=== PATIENT | female | born 2000 | race Two or more races ===

== ENCOUNTER 2021-05-01 17:38 | Emergency (ER) | payer SELFPAY ==
[~2021-05-01] VITALS: Ht 160 cm; Wt 54.5 kg
--- NOTE | 2021-05-01 19:06 | PHYS DOC ---
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 Patient is a 21-year-old female presents to the emergency department complaining of vaginal bleeding that started last night, patient reports she has soaked 1 feminine pad overnight, reports experiencing right lower pelvic pain at approximately 5:00 this evening in which she became concerned and came to the emergency department for evaluation. Patient rates her pain a 5 out of 10 pain. Patient reports her last menstrual cycle was on February 25 with normal duration of flow, states she had a positive test in March, has not followed up with an OB physician. Patient reports 3 para 2, no problems with her previous pregnancies, full-term vaginal births. Patient denies nausea, vomiting, diarrhea, denies seeing blood in her stool or in her urine. Denies burning with urination, increased urinary frequency, urinary pressure, hematuria or other dysuria. Patient denies rashes or lesions to her vagina, denies vaginal discharge or STI concerns. Patient denies dizziness, headaches, syncopal or near syncopal episodes. Patient denies other physical complaints or physical concerns. (MALINDA JOY APRN) Review of Systems: Review of Systems: 14 body systems of review of systems have been reviewed. See HPI for pertinent positives and negative responses, otherwise all other systems are negative, nonpertinent or noncontributory. Constitutional: Negative except as outlined in HPI above. Skin: Negative except as outlined in HPI above. Eyes: Negative except as outlined in HPI above. HENT: Negative except as outlined in HPI above. Respiratory: Negative except as outlined in HPI above. Cardiovascular: Negative except as outlined in HPI above. GI: Negative except as outlined in HPI above. : Negative except as outlined in HPI above. Musculoskeletal: Negative except as outlined in HPI above. Integument: Negative except as outlined in HPI above. Neurologic: Negative except as outlined in HPI above. Endocrine: Negative except as outlined in HPI above. Lymphatic: Negative except as outlined in HPI above. Psychiatric: Negative except as outlined in HPI above. (MALINDA JOY APRN) Heart Score: C/O Chest Pain: No Risk Factors: Risk Factors: DM, Current or recent (<one month) smoker, HTN, HLP, family history of CAD, obesity. Risk Scores: Score 0 - 3: 2.5% MACE over next 6 weeks - Discharge Home Score 4 - 6: 20.3% MACE over next 6 weeks - Admit for Clinical Observation Score 7 - 10: 72.7% MACE over next 6 weeks - Early Invasive Strategies (MALINDA JOY APRN) Allergies: Allergies: Allergies Coded Allergies Type Severity Reaction Last Updated Verified No Known Drug Allergies 05/01/21 No (MALINDA JOY APRN) Physical Exam: PE: Constitutional: Well developed, well nourished, no acute distress, non-toxic appearance. 21-year-old female in no apparent distress. HENT: Normocephalic, atraumatic. Eyes: Conjunctiva normal, no discharge. Neck: Normal range of motion. Cardiovascular: Distal cap refill less than 2 seconds, no cyanosis appreciated. Heart sounds S1-S2 auscultation, regular rate and rhythm. Lungs & Thorax: Patient is in no respiratory distress, no adventitious lung sounds appreciated. Lung sounds clear to auscultation all lung gaytan. Abdomen: Bowel sounds normal, soft, flat, lower right sided pelvic pain to palpation, no masses, no pulsatile masses. No bruising or skin discoloration of the abdomen. Skin: Warm, dry, no erythema, no rash. Back: No tenderness, no CVA tenderness. Extremities: No tenderness, no cyanosis, no clubbing, ROM intact, no edema. Neurologic: Alert and oriented X 3, normal motor function, normal sensory function, no focal deficits noted. Psychologic: Affect normal, judgement normal, mood normal. : Pelvic exam performed with female ED nurse at bedside, no rashes or lesions of the external vagina or adjacent structures, speculum exam reveals pink vaginal wall tissues, the cervical os is nonerythematous, is closed, there is blood oozing from cervical os. (MALINDA JOY APRN) Current Patient Data: Labs: Laboratory Tests Test 05/01/21 18:29 POC Urine HCG, Qualitative Hcg positive (Negative) Vital Signs: Vital Signs Date Time Temp Pulse Resp B/P (MAP) Pulse Ox O2 Delivery O2 Flow Rate FiO2 05/01/21 18:15 98.3 98 14 111/54 (73) 96 98.3 (ADAMOVICH,PARK PEDIATRIC GENETICIST) Labs: Laboratory Tests Test 05/01/21 18:21 05/01/21 18:29 05/01/21 20:15 Urine Collection Type Unknown Urine Color Yellow Urine Clarity Clear Urine pH 7.0 Urine Specific Crozier <=1.005 Urine Protein Negative mg/dL Urine Glucose (UA) Negative mg/dL Urine Ketones (Stick) Negative mg/dL Urine Blood Large Urine Nitrite Negative Urine Bilirubin Negative Urine Urobilinogen Dipstick 0.2 mg/dL Urine Leukocyte Esterase Trace Urine RBC 1-2 /HPF Urine WBC 11-20 /HPF Urine Squamous Epithelial Cells Many /LPF Urine Bacteria 0 /HPF Bedside Urine HCG, Qualitative Hcg positive White Blood Count 11.0 x10^3/uL Red Blood Count 3.81 x10^6/uL Hemoglobin 12.8 g/dL Hematocrit 37.3 % Mean Corpuscular Volume 98 fL Mean Corpuscular Hemoglobin 33 pg Mean Corpuscular Hemoglobin Concent 34 g/dL Red Cell Distribution Width 11.2 % Platelet Count 301 x10^3/uL Neutrophils (%) (Auto) 51 % Lymphocytes (%) (Auto) 29 % Monocytes (%) (Auto) 7 % Eosinophils (%) (Auto) 13 % Basophils (%) (Auto) 1 % Neutrophils # (Auto) 5.6 x10^3/uL Lymphocytes # (Auto) 3.2 x10^3/uL Monocytes # (Auto) 0.7 x10^3/uL Eosinophils # (Auto) 1.5 x10^3/uL Basophils # (Auto) 0.1 x10^3/uL Segmented Neutrophils % 45 % Band Neutrophils % 1 % Lymphocytes % 37 % Atypical Lymphocytes % (Manual) 1 % Monocytes % 2 % Eosinophils % 14 % Platelet Estimate Adequate Maternal Serum HCG Beta Subunit 6034 mIU/mL Sodium Level 141 mmol/L Potassium Level 4.1 mmol/L Chloride Level 103 mmol/L Carbon Dioxide Level 27 mmol/L Anion Gap 11 Blood Urea Nitrogen 11 mg/dL Creatinine 0.6 mg/dL Estimated GFR (Cockcroft-Gault) 125.0 Glucose Level 78 mg/dL Calcium Level 9.1 mg/dL Current Medications Medications (Trade) Dose Ordered Sig/Lynn Route PRN Reason Start Time Stop Time Status Last Admin Dose Admin Acetaminophen/ Hydrocodone Bitart (Lortab 5/325) 1 tab 1X ONCE PO 2/16/22 20:30 05/01/21 20:31 DC 05/01/21 20:37 (CLINTON LARSON MD) EKG: EKG: [] (MALINDA JOY APRN) Radiology/Procedures: Radiology/Procedures: REASON: Vaginal bleeding, PROCEDURE: OB <14 WKS W/TV INDICATION: Reason: Vaginal bleeding, / Spl. Instructions: / History: COMPARISON: None. TECHNIQUE: Grayscale and color ultrasound images of the pelvis. Transvaginal images were obtained. FINDINGS: Uterus: 81 x 55 x 44 mm. Intrauterine gestational sac is seen and unremarkable. Too early in gestation to adequately assess placenta. pole seen. CRL: 7 mm. Estimated Gestational Age: 6 weeks and 4 days Heart Beat: Not visualized Right Ovary: 37 x 28 x 18 mm. Left Ovary: 26 x 25 x 15 mm. Vascular flow identified to bilateral ovaries. IMPRESSION: * Intrauterine is seen without a heartbeat at this time. This could be secondary to early gestational age but follow-up could be obtained to ensure appropriate development of a heartbeat to exclude early failure. * Recommend routine anomaly screening at 18-22 weeks. Electronically signed by: Terry Bell MD (05/01/2021 8:01 PM) [id number] (MALINDA JOY APRN) Course & Med Decision Making: Course & Med Decision Making Pertinent Labs and Imaging studies reviewed. (See chart for details) 21-year-old female, vital signs reviewed, resents emergency department concerning vaginal bleeding during . Will order urinalysis assay, uri ne test, hCG quant, ABO and Rh, CBC, BMP, OB less than 14 weeks transvaginal ultrasound to evaluate . Patient is G3, P2, LMP of , per will places patient at 9 weeks 3 days . The patient's blood type is be positive, no indication for RhoGam, beta hCG quant 6034, OB ultrasound reveals a single intrauterine gestational sac at 6 weeks 4 days per radiologist interpretation. There was no heart rate appreciated, suspect demise versus early , this is likely a demise as gestational measurement per OB ultrasound and beta hCG quant level does not match patient's reported LMP. Discussed findings with patient, recommended strict follow-up in 3 days for repeat examination and evaluation of hCG quantitative levels. Strict follow-up with RN ENDOCRINOLOGY, patient states she does not have an RN ENDOCRINOLOGY to follow-up with, will give RN ENDOCRINOLOGY specialist Dr. Morales information to patient, reviewed strict return to ER precautions and concerns, ongoing OB care and follow-up soon, patient gave verbal understanding of and is amenable to ED discharge planning. Discussed with the patient all findings and diagnostic testing as well as the need to follow-up with their primary care provider for further evaluation and treatment or return to the ED if any new or worsening symptoms. Strict return precautions were also discussed at length, the patient voiced understanding and agreement with the discharge planning. The patient was nontoxic in appearance, in no apparent distress, and hemodynamically stable at the time of disposition. (MALINDA JOY APRN) Course & Med Decision Making I have reviewed the PA/ROASTER HELPER's note and plan of care. I was available for consultation as needed during the patient's visit in the emergency department. I agree with the clinical impression, plan, and disposition with the following addition: Patient is blood type B+. RhoGam not indicated. (CLINTON LARSON MD) Dragon Disclaimer: Dragon Disclaimer: This electronic medical record was generated, in whole or in part, using a voice recognition dictation system. (MALINDA JOY APRN) Departure Departure Impression: Primary Impression: Threatened miscarriage in early Disposition: 01 HOME / SELF CARE / HOMELESS Condition: GOOD Referrals: MALINDA MORALES MD Patient Instructions: Threatened Miscarriage Additional Instructions: Usted fue vista hoy en el departamento de emergencias por sangrado vaginal chyna el embarazo. La ecografa mostr un embarazo intrauterino sin latidos cardacos de aproximadamente 6 semanas y 4 paredes de edad gestacional. Mohsen comentamos, no se apreciaban latidos en el sonograma. Lo ms probable es que esto se deba a janet muerte en la que abortars el embarazo. Lo ms probable es que experimente ms peso de lo normal. Sangrado con calambres hasta que el embarazo caldwell pasado. Si experimenta molestias abdominales severas o sangrado vag inal tere, regrese al departamento de emergencias para janet reevaluacin. Sin embargo, existe janet posibilidad muy pequea de que las estimaciones estn equivocadas y de que ashley embarazo an pueda ser viable. Es muy importante que vuelva a calcular pineda nivel de beta hCG en 3 paredes. Dighton determinar si el embarazo es viable. Pineda nivel de beta hCG hoy es 6034. Infrmele al especialista en obstetricia que chito en 3 paredes que pineda tipo de yajaira es B+. Adjunt janet copia de pineda informe de ecografa a manohar instrucciones de ruiz, trigalo con usted a pineda manuel con el obstetra en 3 paredes. Mehdi por visitar nuestro Departamento de Emergencias. Fue un placer atenderlo hoy en el departamento de emergencias y le agradecemos que nos haya confiado pineda atencin. Si surge algn problema adicional, no dude en volver a visitarnos. Twin un seguimiento con pineda proveedor de atencin primaria para que puedan planificar atencin adicional si es necesario y conocer el problema que tuvo. Si los sntomas empeoran, regrese al Departamento de Emergencias. Cualquier sntoma preocupante que comience, mohsen dolor en el pecho, falta de aire, debilidad o entumecimiento en un lado del cuerpo, fiebre ruiz o cualquier otro sntoma preocupante, regresa a la moises de emergencias. You were seen today in the emergency department for vaginal bleeding during . The sonogram showed an intrauterine without a heartbeat m easuring approximately 6 weeks and 4 days of gestational age. As we discussed there was no heartbeat appreciated on the sonogram. This is most likely due to a demise in which you will miscarry the . You will most likely experience heavier than normal. Bleeding with cramping until the has passed. If you experience severe increased abdominal discomfort or severe vaginal bleeding, please return to the emergency department for reevaluation. However, there is a very small chance that the estimations are off and that this could still be viable. It is very important that you have your beta hCG level redrawn in 3 days. This will determine whether the is viable. Your beta hCG level today is 6034. Please let the OB specialist you see in 3 days know your blood type is B+. I have attached a copy of your sonogram report to your discharge instructions, please bring this with you to your OB appointment in 3 days. Thank you for visiting our Emergency Department. It was a pleasure taking care of you today in the emergency department and we appreciate you trusting us with your care. If any additional problems come up don't hesitate to return to visit us. Please follow up with your primary care provider so they can plan additional care if needed and know about the problem that you had. If symptoms worsen come back to the Emergency Department. Any concerning symptoms that start such as chest pain, shortness of air, weakness or numbness on one side of the body, running high fevers or any other concerning symptoms return to the ER. MALINDA JOY APRN May 01, 2021 19:06 CLINTON LARSON MD May 02, 2021 02:29
[2021-05-01 19:14] LABS: BILIRUBIN,URINE NEGATIVE (NEG); CLARITY,URINE CLEAR; COLOR,URINE YELLOW; NITRITE,URINE NEGATIVE (NEG); PROTEIN,URINE NEGATIVE (NEG-TRACE); UROBILINOGEN,URINE 0.2 mg/dL (0.2 mg/dL)
[2021-05-01 19:33] LABS: BACTERIA,URINE 0 /HPF (0-FEW)
--- NOTE | 2021-05-01 20:03 | RAD ---
INDICATION: Reason: Vaginal bleeding, / Spl. Instructions: / History: COMPARISON: None. TECHNIQUE: Grayscale and color ultrasound images of the pelvis. Transvaginal images were obtained. FINDINGS: Uterus: 81 x 55 x 44 mm. Intrauterine gestational sac is seen and unremarkable. Too early in gestation to adequately assess p lacenta. pole seen. CRL: 7 mm. Estimated Gestational Age: 6 weeks and 4 days Heart Beat: Not visualized Right Ovary: 37 x 28 x 18 mm. Left Ovary: 26 x 25 x 15 mm. Vascular flow identified to bilateral ovaries. IMPRESSION: * Intrauterine is seen without a heartbeat at this time. This could be secondary to early gestational age but follow-up could be obtained to ensure appropriate development of a heartbeat to exclude early failure. * Recommend routine anomaly screening at 18-22 weeks. Electronically signed by: Terry Bell MD (05/01/2021 8:01 PM) [id number]
[2021-05-01 20:30] LABS: BASO # 0.1 x10^3/uL (0.0-0.2); BASO % 1 % (0-3); EOS # 1.5 x10^3/uL (0.0-0.7); EOS % 13 % (0-3); HEMATOCRIT 37.3 % (36.0-47.0); HEMOGLOBIN 12.8 g/dL (12.0-15.5); LYMPH # 3.2 x10^3/uL (1.0-4.8); LYMPH % 29 % (24-48); MEAN CORPUSCULAR HEMOGLOBIN 33 pg (25-35); MEAN CORPUSCULAR HGB CONC 34 g/dL (31-37); MEAN CORPUSCULAR VOLUME 98 fL (79-100); MONO # 0.7 x10^3/uL (0.0-1.1); MONO % 7 % (0-9); NEUT # 5.6 x10^3/uL (1.8-7.7); NEUT % 51 % (31-73); PLATELET COUNT 301 x10^3/uL (140-400); RED BLOOD COUNT 3.81 x10^6/uL (3.50-5.40); RED CELL DISTRIBUTION WIDTH 11.2 % (11.5-14.5)
[2021-05-01] MEDS ORDERED: HYDROcodone/APAP 5/325MG 1 TAB TABLET PO ONE (20:30)
[2021-05-01 20:43] LABS: CALCIUM 9.1 mg/dL (8.5-10.1); CREATININE 0.6 mg/dL (0.6-1.0); POTASSIUM 4.1 mmol/L (3.5-5.1)
[2021-05-01 21:12] LABS: % ATYL 1 % (0-0); % BANDS 1 % (0-9); % EOS 14 % (0-5); % LYMPHS 37 % (24-48); % MONOS 2 % (0-10); % SEGS 45 % (35-66); PLT ESTIMATE ADEQUATE (ADEQUATE)
[2021-05-01 21:26] VITALS: BP 110/64
== END 2021-05-01 22:10 | disposition home or self-care (01) ==
LOC: ER 17:38
DX: O20.0 Threatened abortion (principal); Z3A.01 Less than 8 weeks gestation of pregnancy
CPT/HCPCS: 36415; 76801; 76817; 80048; 81001; 81025; 84702; 85007; 85025; 86900; 86901; 87086; 99285-25

== ENCOUNTER 2021-05-04 20:07 | Emergency (ER) | payer SELFPAY ==
[~2021-05-04] VITALS: Ht 157.5 cm; Wt 54.6 kg
[2021-05-04 20:45] LABS: BILIRUBIN,URINE NEGATIVE (NEG); CLARITY,URINE CLOUDY; COLOR,URINE YELLOW; NITRITE,URINE NEGATIVE (NEG); PROTEIN,URINE NEGATIVE (NEG-TRACE); UROBILINOGEN,URINE 0.2 mg/dL (0.2 mg/dL)
[2021-05-04 20:51] LABS: BACTERIA,URINE FEW /HPF (0-FEW)
[2021-05-04 20:52] LABS: RBC,URINE OCC /HPF (0-2); WBC,URINE OCC /HPF (0-4)
[2021-05-04 20:52] LABS: BASO # 0.1 x10^3/uL (0.0-0.2); BASO % 1 % (0-3); EOS # 1.5 x10^3/uL (0.0-0.7); EOS % 17 % (0-3); HEMATOCRIT 37.6 % (36.0-47.0); HEMOGLOBIN 12.7 g/dL (12.0-15.5); LYMPH # 2.9 x10^3/uL (1.0-4.8); LYMPH % 32 % (24-48); MEAN CORPUSCULAR HEMOGLOBIN 33 pg (25-35); MEAN CORPUSCULAR HGB CONC 34 g/dL (31-37); MEAN CORPUSCULAR VOLUME 97 fL (79-100); MONO # 0.8 x10^3/uL (0.0-1.1); MONO % 9 % (0-9); NEUT # 3.7 x10^3/uL (1.8-7.7); NEUT % 41 % (31-73); PLATELET COUNT 301 x10^3/uL (140-400); RED BLOOD COUNT 3.87 x10^6/uL (3.50-5.40); RED CELL DISTRIBUTION WIDTH 11.2 % (11.5-14.5); WHITE BLOOD COUNT 8.9 x10^3/uL (4.0-11.0)
[2021-05-04 21:04] LABS: CALCIUM 9.1 mg/dL (8.5-10.1); CREATININE 0.6 mg/dL (0.6-1.0); POTASSIUM 4.7 mmol/L (3.5-5.1)
[2021-05-04 21:14] LABS: % BANDS 2 % (0-9); % EOS 12 % (0-5); % MONOS 5 % (0-10)
[2021-05-04 21:15] LABS: % LYMPHS 39 % (24-48); % SEGS 42 % (35-66); PLT ESTIMATE ADEQUATE (ADEQUATE)
--- NOTE | 2021-05-04 21:16 | PHYS DOC ---
Past Medical History Past Surgical History: No Surgical History Smoking Status: Never Smoker Alcohol Use: None General Adult EDM: Chief Complaint: VAGINAL BLEEDING HPI: HPI: 21 yo F with no significant past medical history, presents to the ED with her friend, (patient consents to his/her/their knowledge and involvement in pts' medical care), complaints of vaginal bleeding since Thursday (x4days) with associated abdominal cramps and low back pain. LMP 02/25/21. Was seen in ed 05/01, ultrasound showed intrauterine with no heart rate, beta hcg was 6034, 6wk4d. Was recommended follow-up with MASTER CONTROL SUPERVISOR in 3 days, has not established MASTER CONTROL SUPERVISOR care. No history of excessive bleeding or blood transfusions. Patient is Georgian-speaking and mechanotherapist services were used, code 11968. Review of Systems: Review of Systems: Constitutional: Denies fever or chills. [] Eyes: Denies change in visual acuity. [] HENT: Denies nasal congestion or sore throat. [] Respiratory: Denies cough or shortness of breath. [] Cardiovascular: Denies chest pain or edema. [] GI: Denies nausea, vomiting, bloody stools or diarrhea. [] : Denies dysuria or hematuria Musculoskeletal: Denies saddle anesthesia or joint pain. [] Integument: Denies rash or diaphoresis Neurologic: Denies headache, focal weakness or sensory changes. [] Endocrine: Denies polyuria or polydipsia. [] Lymphatic: Denies swollen glands. [] Psychiatric: Denies depression or anxiety. [] Heart Score: C/O Chest Pain: No Risk Factors: Risk Factors: DM, Current or recent (<one month) smoker, HTN, HLP, family history of CAD, obesity. Risk Scores: Score 0 - 3: 2.5% MACE over next 6 weeks - Discharge Home Score 4 - 6: 20.3% MACE over next 6 weeks - Admit for Clinical Observation Score 7 - 10: 72.7% MACE over next 6 weeks - Early Invasive Strategies Allergies: Allergies: Allergies Coded Allergies Type Severity Reaction Last Updated Verified No Known Drug Allergies 05/01/21 No Physical Exam: PE: Constitutional: Well developed, well nourished, no acute distress, non-toxic appearance. HENT: Normocephalic, atraumatic, Eyes: EOMI, conjunctiva normal, no discharge. Neck: Normal range of motion, supple, Cardiovascular: S1/2 present, regular rhythm Lungs & Thorax: Speaking in full sentences, bilateral equal chest rise, no tachypnea or increased work of breathing Abdomen: soft, no tenderness, Skin: Warm, dry, no erythema, no rash. [] Extremities: No tenderness, no cyanosis, no lower extremity edema Neurologic: Alert and oriented X 3, normal motor function, normal sensory function, no focal deficits noted. [] Psychologic: Affect normal, judgement normal, mood -appears anxious Pelvic: Chaperoned by RN, external genitalia normal, vaginal bleeding present, large blood clot (quarter size) brought in a kaylynn jar from home, cervical os open with no brisk vaginal bleeding-blood is present in cervical os, no cervical erythema, no CMT or adnexal tenderness, tolerated exam well Current Patient Data: Labs: Laboratory Tests Test 05/04/21 20:30 05/04/21 20:37 05/04/21 20:45 Urine Collection Type Unknown Urine Color Yellow Urine Clarity Cloudy Urine pH 7.0 (<5.0-8.0) Urine Specific [place] 1.015 (1.000-1.030) Urine Protein Negative mg/dL (NEG-TRACE) Urine Glucose (UA) Negative mg/dL (NEG) Urine Ketones (Stick) Negative mg/dL (NEG) Urine Blood Large (NEG) Urine Nitrite Negative (NEG) Urine Bilirubin Negative (NEG) Urine Urobilinogen Dipstick 0.2 mg/dL (0.2 mg/dL) Urine Leukocyte Esterase Negative (NEG) Urine RBC Occ /HPF (0-2) Urine WBC Occ /HPF (0-4) Urine Squamous Epithelial Cells Mod /LPF Urine Bacteria Few /HPF (0-FEW) Urine Mucus Mod /LPF POC Urine HCG, Qualitative Hcg positive (Negative) White Blood Count 8.9 x10^3/uL (4.0-11.0) Red Blood Count 3.87 x10^6/uL (3.50-5.40) Hemoglobin 12.7 g/dL (12.0-15.5) Hematocrit 37.6 % (36.0-47.0) Mean Corpuscular Volume 97 fL (79-100) Mean Corpuscular Hemoglobin 33 pg (25-35) Mean Corpuscular Hemoglobin Concent 34 g/dL (31-37) Red Cell Distribution Width 11.2 % (11.5-14.5) L Platelet Count 301 x10^3/uL (140-400) Neutrophils (%) (Auto) 41 % (31-73) Lymphocytes (%) (Auto) 32 % (24-48) Monocytes (%) (Auto) 9 % (0-9) Eosinophils (%) (Auto) 17 % (0-3) H Basophils (%) (Auto) 1 % (0-3) Neutrophils # (Auto) 3.7 x10^3/uL (1.8-7.7) Lymphocytes # (Auto) 2.9 x10^3/uL (1.0-4.8) Monocytes # (Auto) 0.8 x10^3/uL (0.0-1.1) Eosinophils # (Auto) 1.5 x10^3/uL (0.0-0.7) H Basophils # (Auto) 0.1 x10^3/uL (0.0-0.2) Platelet Estimate Pending Sodium Level 143 mmol/L (136-145) Potassium Level 4.7 mmol/L (3.5-5.1) Chloride Level 106 mmol/L (98-107) Carbon Dioxide Level 26 mmol/L (21-32) Anion Gap 11 (6-14) Blood Urea Nitrogen 9 mg/dL (7-20) Creatinine 0.6 mg/dL (0.6-1.0) Estimated GFR (Cockcroft-Gault) 125.0 Glucose Level 88 mg/dL (70-99) Calcium Level 9.1 mg/dL (8.5-10.1) Laboratory Tests 05/04/21 20:45 Laboratory Tests 05/04/21 20:45 EKG: EKG: [] Radiology/Procedures: Radiology/Procedures: IMAGING REPORT Signed PATIENT: YOAN EDMOND ACCOUNT: [id number] : 2000 LOCATION: ER AGE: 21 SEX: F EXAM STATUS: REG ER ORD. PHYSICIAN: HIMANSHU GENAO DO REASON: BLEEDING IN PROCEDURE: OB <14 WKS W/TV EXAM: Pelvic sonogram. HISTORY: Bleeding. TECHNIQUE: Transabdominal and transvaginal sonographic imaging of the pelvis was performed. COMPARISON: 05/01/2021. FINDINGS: The uterus measures 7.7 x 5.3 x 4.2 cm. The endometrial stripe measures 4 mm. There is a small fluid collection at the junction of the lower uterine segment and endocervical canal. This contains internal debris. No pole or yolk sac is seen. The ovaries are normal in size and demonstrate normal blood flow. There is no pelvic free fluid. IMPRESSION: 1. Migration of a gestational sac into the lower uterine segment and endocervical canal due to impending miscarriage. The previously demonstrated pole is no longer seen, consistent with intrauterine demise. There is debris within the gestational sac. 2. Unremarkable ovaries. Electronically signed by: Tia Finley MD (05/04/2021 10:19 PM) [facility] DICTATED and SIGNED BY: TIA FINLEY MD DATE: 05/04/21 [id number] 0 Course & Med Decision Making: Course & Med Decision Making Pertinent Labs and Imaging studies reviewed. (See chart for details) Concern for incomplete in a hemodynamically stable female, no anemia, hCG decreased by more than half. Patient's blood type is B+, not a rhogram candidate. Urinalysis with no signs of infection. Patient with no brisk or heavy vaginal bleeding. Reevaluation patient is sleeping comfortably. Will discharge home with strict ED return precautions were given for hemorrhage, syncope, severe pain or fever. Encouraged urgent outpatient follow-up with PMD for routine care and MASTER CONTROL SUPERVISOR within the next 3 days. Life-threatening processes were considered but are low suspicion at this time, given history, physical exam and ED workup. Pt was educated on all prescription medications and adverse effects. All patient's questions were answered and pt was stable at time of discharge. Life/limb-threatening differential includes but is not limited to, ectopic , septic , sepsis/infection (endometritis, sti/pid, cystitis, pyelonephritis, Jonathan's gangrene or necrotizing fasciitis, abscess), ovarian torsion, ruptured hemorrhagic ovarian cyst, endometriosis, ureterolithiasis, thrombophlebitis, hemorrhage/DIC, organ prolapse, abdominal aortic aneurysm, mesenteric ischemia, neoplasm, bowel obstruction or surgical abdomen. I have spoken with the patient and/or caregivers. I explained the patient's condition, diagnoses and treatment plan based on the information available to me at this time. I have answered the patient and/or caregiver's questions and addressed any concerns. The patient and/or caregivers have a good understanding of patient's diagnosis, condition and treatment plan as can be expected at this point. Vital signs have been stable. Patient's condition is stable and appropriate for discharge from the emergency department. Patient will pursue further outpatient evaluation with primary care physician or other designated or consulting physician as outlined in the discharge instructions. The patient and/or caregivers are agreeable to this plan of care and follow-up instructions have been explained in detail. The patient and/or caregivers have received these instructions in written form and have expressed an understanding of the discharge instructions. The patient and/or caregivers are aware that any significant change of condition or worsening of symptoms should prompt immediate return to this or the closest emergency department or call to 911. Karthik Disclaimer: Dragon Disclaimer: This electronic medical record was generated, in whole or in part, using a voice recognition dictation system. Departure Departure Impression: Primary Impression: Incomplete Disposition: 01 HOME / SELF CARE / HOMELESS Condition: STABLE Referrals: NO PCP (PCP) Seguimiento con ramesh mdico de atencin primaria para atencin de rutina o SEGUIMIENTO CON MEDICINA FAMILIAR: [address] [facility], [facility] [address] [place] [address] Telfono: Patient Instructions: Incomplete Miscarriage Additional Instructions: SEGUIMIENTO CON MASTER CONTROL SUPERVISOR: PARA EL MANEJO DEFINITIVO de un aborto espontneo incompleto en los prximos javeir paredes [facility] y [facility] [address] [facility], [place] [facility] [address] [place] [address] Telfono: INSTRUCCIONES GENERALES DE DOMINIC DEL DEPARTAMENTO DE EMERGENCIA Mehdi por venir al Departamento de Emergencias (ED) de [facility] hoy y confiando en nosotros con ramesh cuidado. Confiamos en que tuviste janet experiencia positiva en nuestra Emergencia Departamento. Si desea hablar con la gerencia del departamento, puede llamar al Director al [phone]. MANOHAR INSTRUCCIONES DE SEGUIMIENTO SON LAS SIGUIENTES: 1. Tiene un mdico privado? Si no tiene un mdico privado, por favor pida lion lista de recursos de mdicos o clnicas que pueden ayudarlo con la atencin de seguimiento. 2. El Mdico de Urgencias caldwell interpretado manohar radiografas. El especialista en tamara X tambin revisarlos. Si hay un cambio en los hallazgos, se le notificar en 48 horas cuando al todo posible. 3. Se caldwell realizado janet prueba de laboratorio o cultivo, se revisarn manohar resultados y se le notificado si necesita un cambio en el tratamiento. INSTRUCCIONES E INFORMACIN ADICIONALES: 1. Ramesh atencin hoy caldwell sido supervisada por un mdico especialmente capacitado en emergencias cuidado. Muchos problemas requieren ms de janet evaluacin para un diagnstico completo y tratamiento. Le recomendamos que programe ramesh chrissy de seguimiento segn lo recomendado para garantizar el tratamiento completo de ramesh enfermedad o lesin. Si no puede obtener un seguimiento atencin y contina teniendo un problema, o si ramesh condicin empeora, le recomendamos que volver al servicio de urgencias. 2. No podemos determinar ramesh condicin de forma kramer por telfono ni podemos kendell buenos consejos mdicos por telfono. Por estas razones de seguridad, si llama para recibir atencin mdica consejo, le pediremos que venga al servicio de urgencias para janet evaluacin adicional. 3. Si tiene alguna pregunta con respecto a estas instrucciones de dominic, llame al ED al [phone]. INFORMACIN DE SEGURIDAD: En inters de la seguridad, el bienestar y la prevencin de lesiones; te animamos a que lleves tu cinturn de seguridad, si fuma; fumando bastante, y alentamos a la agatha a usar un trevon protector para andar en bicicleta y otros eventos deportivos que presentan un mayor riesgo de lesiones en la jenny. SI MANOHAR SNTOMAS EMPEORAN O SE DESARROLLAN NUEVOS SNTOMAS, O SI TIENE PREOCUPACIONES SOBRE RAMESH CONDICIN; O SI RAMESH CONDICIN EMPEORA MIENTRAS ESPERA RAMESH CHRISSY DE SEGUIMIENTO; CUALQUIERA COMUNQUESE CON RAMESH MDICO DE ATENCIN PRIMARIA, EL MDICO CUYO NOMBRE Y NMERO LE DIERON, O REGRESE AL ED INMEDIATAMENTE. HIMANSHU GENAO DO May 04, 2021 21:16
[2021-05-04] MEDS ORDERED: ACETAMINOPHEN 325 MG TABLET. PO ONE (22:15)
--- NOTE | 2021-05-04 22:22 | RAD ---
EXAM: Pelvic sonogram. HISTORY: Bleeding. TECHNIQUE: Transabdominal and transvaginal sonographic imaging of the pelvis was performed. COMPARISON: 05/01/2021. FINDINGS: The uterus measures 7.7 x 5.3 x 4.2 cm. The endometrial stripe measures 4 mm. There is a sm all fluid collection at the junction of the lower uterine segment and endocervical canal. This contai ns internal debris. No pole or yolk sac is seen. The ovaries are normal in size and demonstrate normal blood flow. There is no pelvic free fluid. IMPRESSION: 1. Migration of a gestational sac into the lower uterine segment and endocervical canal due to impend ing miscarriage. The previously demonstrated pole is no longer seen, consistent with intrauteri ne demise. There is debris within the gestational sac. 2. Unremarkable ovaries. Electronically signed by: Tia Olsen MD (05/04/2021 10:19 PM) [facility]
[2021-05-05 00:31] VITALS: BP 96/65
== END 2021-05-05 00:50 | disposition home or self-care (01) ==
LOC: ER 20:07
DX: O03.4 Incomplete spontaneous abortion without complication (principal); Z3A.01 Less than 8 weeks gestation of pregnancy
CPT/HCPCS: 36415; 76801; 76817; 80048; 81001; 81025; 84702; 85007; 85025; 99285-25